=== PATIENT | female | born 1970 | race Two or more races ===

== ENCOUNTER 2020-04-07 06:57 | Inpatient (IN) | payer MEDICAID, MEDICARE ==
[~2020-04-07 06:57] MED LIST: KLONOPIN1 MG ORAL; MULTI VITAMIN1 EACH ORAL; VITAMIN B122500 MCG PO; VITAMIN E1000 UNI1 PO
[2020-04-07] MEDS ORDERED: Bacitracin 50000 Units Vial ONE (10:19)
[2020-04-07] MEDS ORDERED: NeoSporin Gu Irrig 1ml Amp IRRIG ONE (10:19)
[2020-04-07] MEDS ORDERED: LR 1000ml 1,000 ML IVLG SCH (10:50)
[2020-04-07] MEDS ORDERED: Lidocaine 1% MPF 10mg/ml 5ml ONE (10:58)
[2020-04-07] MEDS ORDERED: Sodium Chloride 10ml vial INJ ONE (10:58)
[2020-04-07] MEDS ORDERED: fentaNYL 100 mcg/2 mL IV ONE (10:59)
[2020-04-07] MEDS ORDERED: Hydromorphone 0.5mg/0.5ml inj IVP PRN (11:00)
[2020-04-07] MEDS ORDERED: oxyCODONE HCL/Acetaminophen 5/325mg ORAL PRN (11:00)
[2020-04-07] MEDS ORDERED: Metoclopramide 10mg/2ml Inj IVP PRN (11:00)
[2020-04-07] MEDS ORDERED: Sterile Water Irrig 1000ml IRRIG ONE (11:00)
[2020-04-07] MEDS ORDERED: Atropine Sulfate 0.4mg/ml inj IVP PRN (11:00)
[2020-04-07] MEDS ORDERED: Midazolam 2mg/2ml Inj IVP PRN (11:00)
[2020-04-07] MEDS ORDERED: LR 1000ml ONE (11:00)
[2020-04-07] MEDS ORDERED: Ketorolac 30mg Inj IV PRN ×2 (11:00)
[2020-04-07] MEDS ORDERED: HYDROcodone/Acetamin 5/325 tab ORAL PRN (11:00)
[2020-04-07] MEDS ORDERED: NS Irrig 1000ml ONE (11:00)
[2020-04-07] MEDS ORDERED: DiphenhydrAMINE 50mg/ml Inj IVP PRN (11:00)
[2020-04-07] MEDS ORDERED: Acetaminophen (Non formulary) 100 ML IV ONE (11:00)
[2020-04-07] MEDS ORDERED: HYDROcodone/Acetamin 7.5/325 tab ORAL PRN (11:00)
[2020-04-07] MEDS ORDERED: fentaNYL 100 mcg/2 mL IV PRN (11:00)
[2020-04-07] MEDS ORDERED: Meperidine 25mg/0.5ml Inj (FOR RIGORS ONLY) IV PRN (11:00)
[2020-04-07] MEDS ORDERED: LORazepam Inj 2mg/ml 1ml IV PRN (11:00)
[2020-04-07] MEDS ORDERED: Labetalol 5mg/ml 20ml vial IV PRN (11:00)
[2020-04-07] MEDS ORDERED: Lidocaine 1% Plain 30 ml INJ ONE (11:21)
[2020-04-07] MEDS ORDERED: HYDROmorphone 1mg/ml Carpuject SUBQ PRN (12:45)
[2020-04-07] MEDS ORDERED: D5 1/2NS w/KCl 20mEq 1,000 ML IV SCH (16:00)
[2020-04-07] MEDS: ceFAZolin sod 1 GM in D5W 55 ML IV SCH (18:33)
[2020-04-07] MEDS: HYDROcodone/Acetamin 5/325 tab ORAL PRN (21:27)
[2020-04-08] MEDS: ceFAZolin sod 1 GM in D5W 55 ML IV SCH (02:01)
[2020-04-08] MEDS: HYDROcodone/Acetamin 5/325 tab ORAL PRN ×2 (06:10→10:24)
[2020-04-08] MEDS ORDERED: HYDROCODON-ACE1 EA15 ORAL (10:52)
[2020-04-08] MEDS ORDERED: Tubing IV Secondary IV ONE (14:14)
== END 2020-04-08 14:15 | disposition home or self-care (01) | DRG 363 ==
DX: C50.912 Malignant neoplasm of unspecified site of left female breast (principal); C77.9 Secondary and unspecified malignant neoplasm of lymph node, unspecified; Z98.82 Breast implant status; Z92.21 Personal history of antineoplastic chemotherapy